=== PATIENT | male | born 1965 | race Caucasian/White ===

== ENCOUNTER 2024-10-03 16:02 | Emergency (ER) | payer MEDICAID, OTHER ==
[2024-10-03] MEDS: diphenhydrAMINE 50 MG/ML SDV IVPUSH ONE (16:55)
[2024-10-03] MEDS: Sodium Chloride 0.9% 10 ML Syringe FLUSH PRN (16:57)
[2024-10-03] MEDS: methylPREDNISolone Sodium Succinate 125 MG/2 ML SDV IVPUSH ONE (16:58)
[2024-10-03] MEDS: Iopamidol 612 MG/ML 100 ML Bottle IVPUSH ONE (17:13)
[2024-10-03] MEDS: Ondansetron 4 MG Tab.DIS PO ONE (18:26)
[2024-10-03] MEDS: Ondansetron 4 MG/2 ML SDV IVPUSH ONE (18:27)
[2024-10-03] MEDS: Alum Hydrox/Mag Hydrox/Simeth 30 ML, Lidocaine 2% 15 ML PO ONE (18:30)
== END 2024-10-03 19:10 | disposition home or self-care (01) ==
LOC: JD.ED 16:02
DX: R10.13 Epigastric pain (principal); E78.00 Pure hypercholesterolemia, unspecified; I10 Essential (primary) hypertension; J44.9 Chronic obstructive pulmonary disease, unspecified; Z91.013 Allergy to seafood; Z79.899 Other long term (current) drug therapy
CPT/HCPCS: 74177; 96374; 96375; 99284; A9270; J1200; J2405; J2919; J3490; Q9967; 99283

== ENCOUNTER 2024-11-01 15:33 | Emergency (ER) | payer MEDICAID | END 2024-11-01 16:45 | disposition home or self-care (01) | LOC: JD.ED 15:33 | DX: I11.9 Hypertensive heart disease without heart failure (principal); E78.00 Pure hypercholesterolemia, unspecified; J44.9 Chronic obstructive pulmonary disease, unspecified; Z79.899 Other long term (current) drug therapy; Z91.013 Allergy to seafood | CPT/HCPCS: 99283 ==